=== PATIENT | male | born 1995 | race Caucasian/White ===

== ENCOUNTER 2017-12-23 19:10 | Emergency (ER) | payer BC ==
[2017-12-23] MEDS ORDERED: Ondansetron ODT 4 MG TAB ONE (19:26)
[2017-12-23] MEDS ORDERED: Promethazine HCl 25 MG/ML VIAL ONE (19:29)
[2017-12-23] MEDS ORDERED: Morphine 4 MG/ML Carpuject ONE (20:11)
--- NOTE | 2017-12-23 21:07 | RAD ---
TWO VIEWS SOFT TISSUE NECK: History: Steak stuck in patient's throat. FINDINGS: AP and lateral views soft tissue neck obtained. The oral and hypopharynx are unremarkable. There is some fullness seen in the region of the epiglotti s. This may represent possible impaction of the steak in the vallecula. No evidence of other masses o r lesions seen. IMPRESSION: Soft tissue fullness in the region of the vallecula. This may represent a piece of meat in this area. The esophagus cannot be assessed. POS: DEWEY
[2017-12-23] MEDS ORDERED: Lidocaine 1% w/Epinephrine 1:100K 30 ML VIAL ONE (21:31)
== END 2017-12-23 20:45 | disposition short-term general hospital (02) ==
LOC: NAV ERS 19:10
DX: K22.2 Esophageal obstruction (principal); Z87.891 Personal history of nicotine dependence
CPT/HCPCS: 70360; 96374; 96375; J1610; J2001; J2270; J2550; Q0162